=== PATIENT | male | born 1955 | race Caucasian/White ===

== ENCOUNTER → 2017-07-13 | Outpatient (CLI) | payer BC ==
--- NOTE | 2017-07-13 09:31 | CT ---
EXAMINATION TYPE: CT image guided sinus DATE OF EXAM: 07/13/2017 COMPARISON: NONE HISTORY: 61-year-old male Chronic sinusitis. Technologist history states blocked right nares schedule d for sinus surgery August 15. CT DLP: 580 mGycm Automated exposure control for dose reduction was used. TECHNIQUE: Noncontrast axial views of the paranasal sinuses were obtained. Imaging performed for intr aoperative image guided navigation. FINDINGS: There is pansinus opacification relatively sparing the right frontal sinus and some small amount of r esidual air within the right maxillary sinus. Incidental conchal bullosa on the right. Prominent soft tissue thickening within the bilateral nasal cavities The mastoid air cells and middle ear cavities are clear. Orbits and globes appear intact. Visualized intracranial structures show mild generalized atrophy. IMPRESSION: Imaging performed for surgical navigation purposes. There is severe pansinus disease relatively spari ng the right frontal sinus. Prominent mucosal thickening involving the bilateral nasal cavities; conc don bullosa on the right.
== END | disposition home or self-care (01) ==
LOC: RADCTMAIN 07:36
PROVIDERS: ATTEND Otolaryngology
DX: J32.4 Chronic pansinusitis (principal); J34.89 Other specified disorders of nose and nasal sinuses
CPT/HCPCS: 70486

== ENCOUNTER 2017-08-05 06:37 | Day surgery (SDC) | payer BC ==
[2017-08-02 14:10] VITALS: BMI 28.7
[~2017-08-05 06:37] MED LIST: DEXAMETHASONE SOD PHOSPHATE 10 MG/ML 1 ML VIAL IV ONE; DEXAMETHASONE SOD PHOSPHATE 4 MG/ML 1 ML VIAL IV ONE; FAMOTIDINE 20 MG/2 ML VIAL IV ONE; LACTATED RINGERS 1,000 ML IV SCH; LIDOCAINE 1% 20 ML VIAL (10MG/ML) FOR IV START INTRADERMA PRN; MELOXICAM 7.5 MG TAB PO ONE; MIDAZOLAM 2 MG/2 ML VIAL IV PRN; ONDANSETRON 4 MG/2 ML VIAL IVP ONE; SCOPOLAMINE 1.5MG/72HR PATCH TRANSDERM ONE; fentaNYL (PF) 50 MCG/ML 2 ML AMP IV PRN
[2017-08-05] MEDS: OXYMETAZOLINE 0.05% NASL SPRAY 1 SPRAY BOTTLE NASAL ONE ×4 (07:22→07:43)
[2017-08-05] MEDS ORDERED: fentaNYL (PF) 50 MCG/ML 2 ML AMP ONE (08:42)
[2017-08-05] MEDS ORDERED: PROPOFOL 10 MG/ML 20 ML VIAL IV ONE (08:42)
[2017-08-05] MEDS ORDERED: MIDAZOLAM 2 MG/2 ML VIAL ONE (08:42)
[2017-08-05] MEDS ORDERED: ePHEDrine SULFATE/0.9% NACL/PF 50 MG/5 ML SYRINGE IV ONE (08:42)
[2017-08-05] MEDS ORDERED: SUCCINYLCHOLINE CHLORIDE 100 MG/5 ML SYR IV ONE (08:42)
[2017-08-05] MEDS ORDERED: DEXAMETHASONE SOD PHOS (MDV) 100 MG/10 ML VIAL ONE (08:42)
[2017-08-05] MEDS ORDERED: LIDOCAINE 1% INJ 10MG/ML (20 ML MDV) ONE (08:42)
[2017-08-05] MEDS ORDERED: EPINEPHrine 1 MG/ML (MDV) 30 ML VIAL SQ ONE (09:09)
[2017-08-05] MEDS ORDERED: FLUORESCEIN STRIPS 1 MG STRIP MISCELLANE ONE (09:09)
[2017-08-05] MEDS ORDERED: LIDOCAINE 1%-EPI 1:100,000 20 ML VIAL SQ ONE (09:09)
[2017-08-05] MEDS ORDERED: BUPIVACAINE (PF) 0.5% 30 ML VIAL SQ ONE (09:09)
[2017-08-05] MEDS ORDERED: LACTATED RINGERS 1,000 ML IV ONE ×2 (09:23→13:48)
[2017-08-05] MEDS ORDERED: BACITRACIN 500 UNIT/GM OINT 28.4 GM TUBE TOPICAL ONE (10:04)
[2017-08-05 10:33] VITALS: TEMP 97.3
--- NOTE | 2017-08-05 10:34 | P.OP ---
Date of Procedure: 08/05/17 Preoperative Diagnosis: Deviated nasal septum Bilateral nasal middle turbinate nieves bullosa Bilateral chronic pansinusitis with polyposis Bilateral hypertrophy of the inferior nasal turbinates Anosmia Postoperative Diagnosis: Same Procedure(s) Performed: Septoplasty Bilateral submucosal resection of the inferior turbinates with outfracturing compression Image guided functional endoscopic sinus surgery of all sinuses with removal of intranasal polyposis and sinonasal polyposis Resection of the middle turbinate nieves bullosa bilaterally Placement of drug-eluting stents i.e. propel Anesthesia: GETA Surgeon: Rivera Schwab Estimated Blood Loss (ml): 20 Pathology: other (sinonasal) Condition: stable Disposition: PACU Indications for Procedure: This patient presented to the office with chronic pansinusitis sinonasal polyposis deviated nasal septum and large obstructive inferior turbinates with a middle turbinate nieves bullosa and again widespread polyps. Patient has failed medical therapy due to his obstructive pathology and surgical opening of the nose and sinuses were recommended. All risks, benefits, and alternative therapies were discussed. Consent was obtained and all questions were answered. Operative Findings: Patient had widespread sinonasal disease. He has bilateral intranasal polyposis with obstruction with bilateral middle turbinate nieves bullosa and a deviated nasal septum to the left with over 90% occlusion. Patient had large obstructive inferior turbinates. Patient had chronic pansinusitis with polyposis and obstruction bilaterally. Description of Procedure: This patient was taken to the operative room and placed in the supine position. A general inhalation anesthetic was administered to the patient by the department of anesthesia with a functioning IV line in place. The patient was monitored throughout the entire case by the department of anesthesia. The eyes were taped shut for protection. The patient was placed in a slight reverse Trendelenburg position. The patient had previously utilize Afrin nasal spray preoperatively. The nose was evaluated and the septum lateral nasal wall and inferior turbinates were injected with lidocaine 1% with epinephrine 1 100,000 bilaterally. Approximately 10 minutes were allowed wait for full vasoconstrictive effects to take place. At this point a caudal incision was made over the caudal portion of the left septum down to the mucoperichondrium. A mucoperichondrial flap was elevated on the left side and dissection was carried with use of tunnels posteriorly. We then made a crossover incision through the cartilage to the contralateral side and for the mucoperichondrial flap development was performed to the extent of visualization on the contralateral side. After the cartilage was freed with use of several crosshatching incisions and removal of some redundant strips of septal cartilage, the septum was straightened and placed back in the midline. The septum was sutured fixated to the ovarian groove. Excellent straightening occurred and the septum was visibly straight. Incision was closed with a 40 rapid Vicryl. We utilized a running nonlocking fashion for closure of the incision. A quilting stitch was used to reapproximate the septal flaps with use of a 40 rapid Vicryl. We then registered the image guided general [employer]. We utilized image guidance throughout the entire surgical case along with endoscopic visualization utilizing a Wednesday of different endoscopes. We used anatomic verification to guide us through her sinus surgery. Again this was done throughout the surgical case. Bilateral middle turbinate nieves bullosa was noted and with use of a microdebrider this was resected laterally. The nieves bullosa was resected to obtain a normal contoured to decompress the sinus openings. They were obstructive. We then entered the nose with a 0 and 30 Gonzalez jose alfredo endoscope. Previous to this we did inject the lateral nasal wall and middle turbinate and uncinate process with lidocaine 1% with epinephrine 1 100,000. Approximately 10 minutes were allowed wait for full vasoconstrictive effects to take place. Intranasal polyps were noted. They were noted bilaterally. The intranasal polyps were removed with use of a microdebrider. With use of a microdebrider and a pediatric backbiter, we took down the uncinate process bilaterally. We then opened the maxillary sinuses bilaterally. We utilized a microdebrider for this and entered the maxillary sinuses and removed diseased tissue and polypoid tissue. This was done bilaterally. After the maxillary sinuses were opened and the diseased tissue and polyps were removed we entered the ethmoid bulla and with use of a microdebrider and up-biting alvina and Elverley, we remove the anterior septations and remove diseased tissue from the anterior ethmoids with direct visualization. We then followed the fovea frontalis through the basal lamella and into the posterior ethmoid air cells and did a total ethmoidectomy with removal of polypoid material. Once the ethmoids cells were all taken down we then entered the sphenoid sinus medially and inferiorly underneath the inferior attachment of the superior turbinate. The sphenoid sinus was opened entered and diseased tissue and polyps were removed bilaterally. This was done with a microdebrider and Blakesley. We then entered the frontal sinuses with a giraffe and up-biting Blakesley entered on the agar nasi cells. We open the frontal sinuses and removed sinus tissue and polypoid tissue that was diseased. We did utilized balloon technology to enhance our opening. We utilized an entellus balloon for the frontal sinuses with use of removal of diseased tissue. We explored the frontal sinuses bilaterally. To summarize all sinuses were open all sinuses were explored and we remove diseased tissue and polyps from the sphenoid maxillary and frontal sinuses. Polyps were removed from the nose. Ethmoid sinuses were opened totally. Xerogel and Katelyn was inserted and minimal bleeding was encountered. We reinspected the skull base there is no signs of any orbital penetration or signs of any intracranial penetration. The sugical site was reinspected after the xerogel and Katelyn was placed and no bleeding was seen. We also inserted propel mini propel and propel contour bilaterally. Attention was then paid to the inferior turbinates. The bilateral inferior turbinates were hypertrophic and obstructive. We entered the anterior portion of the inferior turbinates with use of a microdebrider. We remove bone and submucosal elements with use of a microdebrider bilaterally. The inferior turbinates underwent a submucosal resection with removal of submucosal tissue and bone. We obtained a much better and normal in size for breathing. The inferior turbinates were then outfractured and compressed with a Boyes nasal elevator. Excellent airway was obtained and was symmetric bilaterally. No bleeding was encountered. We inserted bilateral Merocel sponge packs which will be removed tomorrow morning. He will start irrigating tomorrow.
[2017-08-05 12:12] VITALS: RESP 18
[2017-08-05] MEDS ORDERED: HYDROcodone/APAP 5-325MG 1 EACH TAB PO ONE (12:22)
[2017-08-05] MEDS ORDERED: ENALAPRILAT 1.25 MG/ML 1 ML VIAL IVP ONE ×2 (13:08→13:53)
[2017-08-05] MEDS ORDERED: LABETALOL SYRINGE 5 MG/ML IVP ONE ×2 (13:15→14:19)
[2017-08-05] MEDS ORDERED: hydrALAZINE HCL 20 MG/ML 1 ML VIAL IVP ONE ×2 (13:30→14:20)
[2017-08-05] MEDS ORDERED: amLODIPine 10 MG TAB PO STA (13:46)
[2017-08-05 16:13] VITALS: BP 138/78; PULSE 88
== END 2017-08-05 16:24 | disposition home or self-care (01) ==
LOC: OR 06:37
PROVIDERS: ATTEND Otolaryngology
DX: J34.2 Deviated nasal septum (principal); J32.4 Chronic pansinusitis; J34.3 Hypertrophy of nasal turbinates; J33.8 Other polyp of sinus; R43.0 Anosmia; J45.909 Unspecified asthma, uncomplicated; J33.9 Nasal polyp, unspecified; H93.19 Tinnitus, unspecified ear; M19.90 Unspecified osteoarthritis, unspecified site; Z85.46 Personal history of malignant neoplasm of prostate; Z79.2 Long term (current) use of antibiotics; Z79.51 Long term (current) use of inhaled steroids; Z79.52 Long term (current) use of systemic steroids; Z79.899 Other long term (current) drug therapy; Z79.82 Long term (current) use of aspirin
CPT/HCPCS: 30520; 30140; 31240; 31267; 31259; 31253; 88305; C2625 ×3; C1726; J0171; J2250; J0360; J1100 ×2; J2001; J3010; J0330; J2704